=== PATIENT | male | born 1975 | race African-American/Black ===

== ENCOUNTER 2017-02-22 02:07 | Emergency (ER) | payer OTHER ==
[~2017-02-22] VITALS: Ht 167.6 cm; Wt 86.2 kg
[~2017-02-22 02:07] MED LIST: BACTRIM-DS1 EA ORAL; IBUPROFEN600 MG ORAL; KEFLEX500 MG ORAL; NKM; NORCO 5-325 TA1 EACH ORAL; TRAMADOL HCL50 MG ORAL; VALIUM5 MG ORAL
[2017-02-22 02:28] VITALS: BP 142/84
--- NOTE | 2017-02-22 02:44 | Emergency Room Report ---
History of Present Illness General Chief Complaint: Flu Like Symptoms Source: Patient Present Illness HPI 44-year-old male, current smoker, p/w cough for 2 days. Pt states cough is productive, with clear non bloody sputum. Denies fever chills sob or chest pain. +runny nose or myalgias. No sick contacts or recent travel. Allergies: Coded Allergies: No Known Allergies (Unverified , 07/11/13) Patient History Past Medical History: see triage record Past Surgical History: none Pertinent Family History: none Reviewed Nursing Documentation: PMH: Agreed, PSxH: Agreed Nursing Documentation-PMH Past Medical History: No Stated History Review of Systems All Other Systems: negative except mentioned in HPI Physical Exam Vital Signs Date Time Temp Pulse Resp B/P (MAP) Pulse Ox O2 Delivery O2 Flow Rate FiO2 02/22/17 02:15 98.4 110 16 142/84 96 Room Air Sp02 EP Interpretation: reviewed, normal General Appearance: normal inspection, well appearing, no apparent distress, alert, GCS 15, non-toxic Head: normocephalic, atraumatic Eyes: bilateral eye normal inspection, bilateral eye PERRL, bilateral eye EOMI ENT: normal ENT inspection, normal pharynx, normal voice, moist mucus membranes Neck: normal inspection, full range of motion, supple Respiratory: normal inspection, lungs clear, normal breath sounds, no respiratory distress, no retraction, no wheezing, speaking full sentences, chest symmetrical Cardiovascular #1: normal inspection, regular rate, rhythm, normal capillary refill Cardiovascular #2: 2+ radial (R), 2+ radial (L) Gastrointestinal: normal inspection, non tender, soft, non-distended, no guarding Genitourinary: no CVA tenderness Musculoskeletal: normal inspection, back normal, normal range of motion, non- tender Neurologic: normal inspection, alert, oriented x3, responsive, motor strength/ tone normal, sensory intact, normal gait, speech normal Psychiatric: normal inspection, judgement/insight normal, memory normal Skin: normal inspection, normal color, no rash, warm/dry, well hydrated, normal turgor Medical Decision Making Diagnostic Impression: Primary Impression: Viral URI with cough ER Course 41-year-old male with cough DDX: Viral URI vs. pneumonia Plan: CXR, antibiotics ER course: Patient remains nontoxic, not in resp distress. CXR obtained - no acute infiltrate Disposition: Patient is to be discharged home Strict precautions discussed with patient on when to return to the emergency room including hemoptysis, high fevers, chills, SOB, chest pain which may indicate severe illness. Patient is to follow up with their primary care doctor within 5 days. Patient agrees with plan. Please note that this Emergency Department Report was dictated using [email or web address] technology software, occasionally this can lead to erroneous entry secondary to interpretation by the dictation equipment Chest X-ray CXR: Ordered: Yes 1 view Indication: Cough EP interpretation: Yes Interpretation: No consolidation, no effusion, no PTX, no acute cardiopulmonary disease Impression: No acute disease Electronically signed by Rosa Elena Solo MD Last Vital Signs Date Time Temp Pulse Resp B/P (MAP) Pulse Ox O2 Delivery O2 Flow Rate FiO2 02/22/17 02:15 98.4 110 16 142/84 96 Room Air Disposition: HOME, SELF-CARE Condition: Improved Patient Instructions: Upper Respiratory Infection, Adult, [id number] Rosa Elena Solo M.D. Feb 22, 2017 02:44
[2017-02-22] MEDS ORDERED: TESSALON PERLE100 MG ORAL (02:57)
[2017-02-22 03:04] VITALS: BP 142/84
--- NOTE | 2017-02-22 10:54 | Diagnostic Imaging Report ---
Indication: Cough Technique: One view of the chest Comparison: 01/26/2014 Findings: Lungs and pleural spaces are clear. Heart size is normal. No significant change Impression: No acute process
== END 2017-02-22 03:15 | disposition home or self-care (01) ==
LOC: EMR 03:13
DX: J06.9 Acute upper respiratory infection, unspecified (principal); B34.9 Viral infection, unspecified
CPT/HCPCS: 71010; 99283

== ENCOUNTER 2018-09-20 13:40 | Emergency (ER) | payer OTHER ==
[~2018-09-20] VITALS: Ht 167.6 cm; Wt 79.4 kg
[~2018-09-20 13:40] MED LIST changes: +TESSALON PERLE100 MG ORAL
--- NOTE | 2018-09-20 13:50 | NUR ---
ED Nurse Note: Patient walked into ED c/o abdominal pain, patient reports nausea and vomiting. patient denies diarrhea. patient is alert awake x4 ambulatory. breathing unlabored and even.
[2018-09-20] MEDS ORDERED: Fleet's Enema 133ml RECTAL ONE ×2 (14:15→15:30)
--- NOTE | 2018-09-20 14:23 | NUR ---
ED Nurse Note: Per Dr. Bello, hold all the orders, do the enema first.
--- NOTE | 2018-09-20 14:31 | NUR ---
ED Nurse Note: enema given as ordred
--- NOTE | 2018-09-20 14:44 | Emergency Room Report ---
History of Present Illness General Chief Complaint: Abdominal Pain Source: Patient Present Illness HPI Patient states that he has a history of constipation. He states that he has not had a bowel movement in the past 2 days. He states he had tried to go today and only had tiny pellets. He states that he has had a poor diet with a lot of cheese. He denies nausea or vomiting. He denies fever or chills. He states his abdomen hurts and he feels nauseated. He states that he believes he just needs to have a bowel movement. Is requesting a stool softener. He states that his urine has been darker today. He denies chest pain or shortness of breath. He has no other complaints. Allergies: Coded Allergies: No Known Allergies (Unverified , 07/11/13) Patient History Past Medical History: none, see triage record Past Surgical History: none Social History: Reports: alcohol use, drug use; Denies: smoking Reviewed Nursing Documentation: PMH: Agreed; PSxH: Agreed Nursing Documentation-PMH Past Medical History: No Stated History Review of Systems All Other Systems: negative except mentioned in HPI Physical Exam Vital Signs Date Time Temp Pulse Resp B/P (MAP) Pulse Ox O2 Delivery O2 Flow Rate FiO2 09/20/18 13:45 98.6 109 19 138/99 (112) 96 Room Air Sp02 EP Interpretation: reviewed, normal General Appearance: no apparent distress, alert, GCS 15, non-toxic Head: normocephalic, atraumatic Eyes: bilateral eye normal inspection, bilateral eye PERRL ENT: hearing grossly normal, normal pharynx, no angioedema, normal voice Neck: full range of motion, supple/symm/no masses Respiratory: chest non-tender, lungs clear, normal breath sounds, no respiratory distress, no retraction, no accessory muscle use, speaking full sentences Cardiovascular #1: regular rate, rhythm, no edema Gastrointestinal: normal bowel sounds, soft, no guarding, no rebound, distended , tenderness - Diffusely TTP Rectal: deferred Musculoskeletal: back normal, gait/station normal, normal range of motion, non- tender Neurologic: alert, oriented x3, responsive, motor strength/tone normal, sensory intact, speech normal Psychiatric: judgement/insight normal, memory normal, mood/affect normal, no suicidal/homicidal ideation Skin: no rash, normal color, normal inspection Medical Decision Making Diagnostic Impression: Primary Impression: Appendicitis ER Course This patient who presented with constipation. On arrival, I had ordered lab work-up and a CT of the abdomen and pelvis to further assess the patient's abdomen. The patient's abdomen was quite tender on examination. Initially, the patient had declined stating that he wanted to have a bowel movement first. He was given a Fleet enema. He had a very small bowel movement. He had significant resolution of his pain, however, he was concerned as he still had ongoing full feeling. At that time, he decided to undergo the lab tests in the CT of the abdomen and pelvis. This delayed the evaluation of this patient. Patient was found to have early appendicitis. This fits with the patient's exam. He is admitted for surgical appendectomy. The patient's insurance company requested his transfer. He is stable for transfer. Laboratory Tests Test 09/20/18 16:55 White Blood Count 10.3 K/UL (4.8-10.8) Red Blood Count 5.64 M/UL (4.70-6.10) Hemoglobin 17.5 G/DL (14.2-18.0) Hematocrit 52.5 % (42.0-52.0) H Mean Corpuscular Volume 93 FL (80-99) Mean Corpuscular Hemoglobin 31.0 PG (27.0-31.0) Mean Corpuscular Hemoglobin Concent 33.4 G/DL (32.0-36.0) Red Cell Distribution Width 11.4 % (11.6-14.8) L Platelet Count 259 K/UL (150-450) Mean Platelet Volume 7.4 FL (6.5-10.1) Neutrophils (%) (Auto) 68.1 % (45.0-75.0) Lymphocytes (%) (Auto) 21.8 % (20.0-45.0) Monocytes (%) (Auto) 7.6 % (1.0-10.0) Eosinophils (%) (Auto) 0.6 % (0.0-3.0) Basophils (%) (Auto) 2.0 % (0.0-2.0) Sodium Level 135 MMOL/L (136-145) L Potassium Level 3.6 MMOL/L (3.5-5.1) Chloride Level 99 MMOL/L (98-107) Carbon Dioxide Level 30 MMOL/L (21-32) Anion Gap 7 mmol/L (5-15) Blood Urea Nitrogen 21 mg/dL (7-18) H Creatinine 1.2 MG/DL (0.55-1.30) Estimate Glomerular Filtration Rate > 60 mL/min (>60) Glucose Level 143 MG/DL (74-106) H Calcium Level 9.7 MG/DL (8.5-10.1) Total Bilirubin 0.7 MG/DL (0.2-1.0) Aspartate Amino Transferase (AST) 20 U/L (15-37) Alanine Aminotransferase (ALT) 24 U/L (12-78) Alkaline Phosphatase 77 U/L (46-116) Troponin I 0.023 ng/mL (0.000-0.056) Total Protein 8.6 G/DL (6.4-8.2) H Albumin 3.7 G/DL (3.4-5.0) Globulin 4.9 g/dL Albumin/Globulin Ratio 0.8 (1.0-2.7) L Lipase 182 U/L (73-393) EKG Diagnostic Results Rate: normal Rhythm: NSR ST Segments: no acute changes Other Impression prolonged Qt Rhythm Strip Diag. Results EP Interpretation: yes Rate: 90's Rhythm: NSR, no PVC's, no ectopy CT/MRI/US Diagnostic Results CT/MRI/US Diagnostic Results : Imaging Test Ordered: CT abd/pelvis Impression Inflammatory findings of the appendix c/w early appendicitis. Last Vital Signs Date Time Temp Pulse Resp B/P (MAP) Pulse Ox O2 Delivery O2 Flow Rate FiO2 09/20/18 14:24 98 19 Room Air 09/20/18 13:45 98.6 138/99 (112) 96 Disposition: HOME, SELF-CARE Condition: Serious Rochelle Bello DO Sep 20, 2018 14:44
[2018-09-20 14:45] VITALS: BP 136/98
--- NOTE | 2018-09-20 15:39 | NUR ---
ED Nurse Note: first enema given successfully, patient was able to pass out some stool. second enema was given as ordered, unsuccessful, patient c/o discomfort and pain and insisted to stop. was not able to push enema solution through. notified Dr. Bello.
[2018-09-20] MEDS ORDERED: Isovue-300 100ml vial INJ PRN (16:00)
--- NOTE | 2018-09-20 16:02 | NUR ---
ED Nurse Note: patient is sitting on the commode
[2018-09-20 17:16] LABS: EOSINOPHILS % (AUTO) 0.6 % (0.0-3.0); HEMATOCRIT 52.5 % (42.0-52.0); HEMOGLOBIN 17.5 G/DL (14.2-18.0); LYMPHOCYTES % (AUTO) 21.8 % (20.0-45.0); MEAN CORPUSCULAR VOLUME 93 FL (80-99); MONOCYTES % (AUTO) 7.6 % (1.0-10.0); NEUTROPHILS % (AUTO) 68.1 % (45.0-75.0); PLATELET COUNT 259 K/UL (150-450); RED BLOOD COUNT 5.64 M/UL (4.70-6.10); RED CELL DISTRIBUTION WIDTH 11.4 % (11.6-14.8); WHITE BLOOD COUNT 10.3 K/UL (4.8-10.8)
[2018-09-20 17:24] LABS: ANION GAP 7 mmol/L (5-15); BLOOD UREA NITROGEN 21 mg/dL (7-18); CALCIUM 9.7 MG/DL (8.5-10.1); CARBON DIOXIDE 30 MMOL/L (21-32); CHLORIDE 99 MMOL/L (98-107); CREATININE 1.2 MG/DL (0.55-1.30); POTASSIUM 3.6 MMOL/L (3.5-5.1); SODIUM 135 MMOL/L (136-145)
[2018-09-20 17:28] LABS: ALANINE AMINOTRANSFERASE 24 U/L (12-78); ALBUMIN 3.7 G/DL (3.4-5.0); ALBUMIN/GLOBULIN RATIO 0.8 (1.0-2.7); ALKALINE PHOSPHATASE 77 U/L (46-116); ASPARTATE AMINO TRANSFERASE 20 U/L (15-37); BILIRUBIN,TOTAL 0.7 MG/DL (0.2-1.0)
--- NOTE | 2018-09-20 17:29 | NUR ---
ED Nurse Note: patient reported that he cannot give urine sample right now, but will give a little later.
--- NOTE | 2018-09-20 18:29 | NUR ---
ED Nurse Note: Patient educated not to eat anything by mouth from now on, including drinking water.
--- NOTE | 2018-09-20 18:30 | NUR ---
ED Nurse Note: patient verbalized understanding
--- NOTE | 2018-09-20 19:10 | NUR ---
HAND-OFF: Report given to Justin MCLEOD.
[2018-09-20 19:11] LABS: APPEARANCE,URINE CLEAR; BILIRUBIN, URINE NEGATIVE (NEGATIVE); COLOR,URINE PALE YELLOW; GLUCOSE, URINE (UA) NEGATIVE (NEGATIVE); KETONES,URINE NEGATIVE (NEGATIVE); LEUKOCYTE ESTERASE ,URINE NEGATIVE (NEGATIVE); NITRITE,URINE NEGATIVE (NEGATIVE); PH,URINE 6 (4.5-8.0); PROTEIN,URINE 2+ (NEGATIVE); UROBILINOGEN,URINE NORMAL MG/DL (0.0-1.0)
[2018-09-20 20:14] VITALS: BP 137/98
--- NOTE | 2018-09-20 21:00 | NUR ---
ED Nurse Note: Gave report to SHANI Ng
[2018-09-20 21:30] VITALS: BP 132/88
--- NOTE | 2018-09-21 10:15 | Diagnostic Imaging Report ---
Indication: Abdominal pain Technique: Continuous helical transaxial imaging of the abdomen and pelvis was obtained from the lung bases to the pubic symphysis during intravenous contrast administration. Coronal 2-D reformats were also obtained. Study obtained in a Siemens sensation [address] Automatic Exposure Control was utilized. Total Dose length Product (DLP): 700.[address] Dose Index Volume (CTDIvol): 12.1 mGy Comparison: None Findings: The lung bases are clear. There are multiple bilateral renal cysts. The liver and spleen, pancreas, gallbladder, adrenal glands appear unremarkable. Bowel gas pattern is nonobstructive. The base of the appendix is dilated measuring about 1.3 cm. The mid to distal portion of the appendix and the tip of the appendix appear normal. There is no definite inflammation identified surrounding the appendix. Correlate clinically for acute appendicitis. There is no abscess or evidence of free fluid. There is thickening of the wall the urinary bladder. Mild prostate calcification present. Mild calcification of aorta demonstrated. IMPRESSION: Prominent base of the appendix. Early appendicitis not excluded. Correlate clinically. Multiple bilateral renal cysts. Other incidental findings as above [facility] has communicated the preliminary results to the Emergency Department. Their findings are largely concordant with this report. The CT scanner at [facility] is accredited by the [employer] and the scans are performed using dose optimization techniques as appropriate to a performed exam including Automatic Exposure control.
--- NOTE | 2018-09-21 15:55 | Cardiology Report ---
APPROVED REPORT EKG Measurement Heart [id number] ID [id number] Normal sinus rhythm Biatrial enlargement Prolonged QT Abnormal ECG
== END 2018-09-20 20:55 | disposition home or self-care (01) ==
LOC: EMR 18:50
DX: K37 Unspecified appendicitis (principal); N28.1 Cyst of kidney, acquired
CPT/HCPCS: 36415; 74177; 80053; 80307; 81003; 83690; 84484; 85025; 93005; 96361; 96374; 96375; 99284; J2405; Q9967; S0028

== ENCOUNTER 2019-11-12 22:33 | Emergency (ER) | payer OTHER ==
[~2019-11-12] VITALS: Ht 167.6 cm; Wt 83.9 kg
[2019-11-12 22:43] VITALS: BP 152/93
--- NOTE | 2019-11-12 22:59 | Emergency Room Report ---
History of Present Illness General Chief Complaint: Back Pain-No Injury Source: Patient Present Illness HPI 44-year-old male here with several weeks of left lower back pain. Patient says that the pain is dull in nature, located in the left lower back, does not otherwise radiate. No bloody urine or bloody stool. No injuries. Denies IV drug use. No midline back pain. No fevers or chills. No focal numbness or weakness. No saddle anesthesia or difficulty urinating or defecating. No urinary fecal retention or incontinence. Has not taken any medications for the pain. Allergies: Coded Allergies: No Known Allergies (Unverified , 07/11/13) COVID-19 Screening Contact w/high risk pt: No Experienced COVID-19 symptoms?: No COVID-19 Testing performed BILLING COLLECTIONS SPECIALIST: No Nursing Documentation-[facility] Past Medical History: No Stated History Review of Systems All Other Systems: negative except mentioned in HPI Physical Exam Vital Signs Date Time Temp Pulse Resp B/P (MAP) Pulse Ox O2 Delivery O2 Flow Rate FiO2 11/12/19 22:35 98.4 110 19 152/93 (112) 94 11/12/19 22:43 Room Air Sp02 EP Interpretation: reviewed, normal General Appearance: no apparent distress, alert, non-toxic Head: normocephalic, atraumatic Eyes: bilateral eye normal inspection, bilateral eye PERRL ENT: hearing grossly normal, normal pharynx, no angioedema, normal voice Neck: full range of motion, supple/symm/no masses Respiratory: chest non-tender, lungs clear, normal breath sounds, speaking full sentences Cardiovascular #1: regular rate, rhythm, no edema Cardiovascular #2: 2+ carotid (R), 2+ carotid (L), 2+ radial (R), 2+ radial (L) , 2+ dorsalis pedis (R), 2+ dorsalis pedis (L) Gastrointestinal: normal bowel sounds, non tender, soft, non-distended, no guarding, no rebound Rectal: deferred Genitourinary: normal inspection, no CVA tenderness Musculoskeletal: back normal, normal range of motion, calf tenderness, gait/ station normal, tender - Left lumbar paraspinal muscle tenderness on palpation. No midline spinal tenderness. No step-offs or deformities. No focal numbness or weakness. Neurologic: alert, motor strength/tone normal, oriented x3, sensory intact, responsive, speech normal Psychiatric: judgement/insight normal, memory normal, mood/affect normal, no suicidal/homicidal ideation Reflexes: 3+ bicep (R), 3+ bicep (L), 3+ tricep (R), 3+ tricep (L), 3+ knee (R) , 3+ knee (L) Lymphatic: no adenopathy Medical Decision Making Diagnostic Impression: Primary Impression: Muscle spasm Additional Impression: Muscle spasm of back ER Course 44-year-old male here with nontraumatic left lower back pain for several weeks. Patient was hemodynamically stable in the emergency department and had a normal neurologic and physical examination aside from some mild tenderness with palpation of the left paraspinal lumbar muscles. He was given Lidoderm patch, Toradol, Tylenol, Valium with good resolution of his pain. Denies any other symptoms including focal weakness, anesthesia, recent unintentional weight loss, night sweats, history of IV drug use, recent steroid usage, history of osteoporosis, urinary or bowel incontinence or retention, or history of malignancy. He was given prescription for pain medications and information to follow-up with her primary care physician. Discharged in stable condition. Last Vital Signs Date Time Temp Pulse Resp B/P (MAP) Pulse Ox O2 Delivery O2 Flow Rate FiO2 11/12/19 22:43 98.4 76 19 152/93 96 Room Air Scripts Lidocaine Patch* (Lidoderm Patch*) 1 Each Adh..patch 1 PATCH TOPIC DAILY, #7 PATCH 0 Refills Patch(es) may remain in place for up to 12 hours in any 24-hour period. Prov: Simeon Garcia M.D. 11/12/19 Ibuprofen* (MOTRIN*) 600 Mg Tablet 600 MG ORAL Q6H PRN for FOR PAIN, #20 TAB 0 Refills Prov: Simeon Garcia M.D. 11/12/19 Referrals: [facility],REFERRING (PCP) Simeon Garcia M.D. Nov 12, 2019 22:59
[2019-11-12] MEDS ORDERED: Acetaminophen 500mg (ES) tab ORAL ONE (23:00)
[2019-11-12] MEDS ORDERED: Ketorolac 60mg Inj IM ONE (23:00)
[2019-11-12] MEDS ORDERED: IBUPROFEN600 M1 ORAL (23:22)
[2019-11-12] MEDS ORDERED: LIDODERM700 M1 TOPIC (23:22)
[2019-11-12 23:37] VITALS: BP 152/93
== END 2019-11-12 23:37 | disposition home or self-care (01) ==
LOC: EMR 22:55
DX: M62.830 Muscle spasm of back (principal)
CPT/HCPCS: 96372; Z7502; 99283

== ENCOUNTER 2020-05-12 05:22 | Emergency (ER) | payer OTHER ==
[~2020-05-12] VITALS: Ht 170.2 cm; Wt 86.2 kg
[~2020-05-12 05:22] MED LIST changes: +IBUPROFEN600 M1 ORAL; +LIDODERM700 M1 TOPIC
--- NOTE | 2020-05-12 05:51 | Emergency Room Report ---
History of Present Illness General Chief Complaint: Dyspnea/Respdistress Source: Patient (Rohith Nguyen MD) Present Illness HPI Is a 44-year-old male with history of high blood pressure but not on medication. He is also a smoker. He presents with chief complaint of shortness of breath. Onset for last 2 weeks. Worse with exertion. Better with rest. Denies any chest pain. He has a chronic cough but nonproductive nature other than slight phlegm. Denies any fever chills but denies any weight loss. He denies any nausea vomiting or diarrhea. (Rohith Nguyen MD) Allergies: Coded Allergies: No Known Allergies (Unverified , 07/11/13) COVID-19 Screening Contact w/high risk pt: No Experienced COVID-19 symptoms?: No COVID-19 Testing performed CHIEF RECORDIST: No (Rohith Nguyen MD) Patient History Past Medical History: see triage record, old chart reviewed, HTN Past Surgical History: appy Pertinent Family History: none Social History: Reports: smoking Immunizations: other Reviewed Nursing Documentation: PMH: Agreed; PSxH: Agreed (Rohith Nguyen MD) Nursing Documentation-PMH Past Medical History: No Stated History (Rohith Nguyen MD) Review of Systems Eye: Denies: eye pain, blurred vision ENT: Denies: ear pain, nose congestion, throat swelling Respiratory: Reports: cough, shortness of breath, PELAEZ Cardiovascular: Denies: chest pain, palpitations Gastrointestinal: Denies: abdominal pain, diarrhea, nausea, vomiting Musculoskeletal: Denies: back pain, joint pain Skin: Denies: rash Neurological: Denies: headache, numbness Endocrine: Denies: increased thirst, increased urine Hematologic/Lymphatic: Denies: easy bruising All Other Systems: negative except mentioned in HPI (Rohith Nguyen MD) Physical Exam Vital Signs Date Time Temp Pulse Resp B/P (MAP) Pulse Ox O2 Delivery O2 Flow Rate FiO2 05/12/20 05:28 97.2 94 20 149/98 (115) 94 Room Air Vitals with high blood pressure Sp02 EP Interpretation: reviewed, normal General Appearance: well appearing, no apparent distress, alert Head: normocephalic, atraumatic Eyes: bilateral eye PERRL, bilateral eye EOMI ENT: hearing grossly normal, normal pharynx Neck: full range of motion, supple, no meningismus Respiratory: chest non-tender, lungs clear, normal breath sounds, respiratory distress - Mild, decreased breath sounds, accessory muscle use Cardiovascular #1: regular rate, rhythm, no murmur, tachycardia Gastrointestinal: normal bowel sounds, non tender, no mass, no organomegaly, no bruit, non-distended Musculoskeletal: back normal, normal range of motion, gait/station normal Psychiatric: mood/affect normal (Rohith Nguyen MD) Medical Decision Making Diagnostic Impression: Primary Impression: New onset type 2 diabetes mellitus Additional Impressions: New onset of congestive heart failure Substance abuse ER Course Patient presents with dyspnea on exertion. Differential includes ACS, PE, dissection Tamiflu. Work-up pending. I will sign this patient out to the oncoming doctor. (Rohith Nguyen MD) ER Course Patient was endorsed to me by .See 's note for full HPI. Patient presents for increased shortness of breath. Differential diagnosis include was not limited to coronavirus infection, pneumonia, CHF, renal failure among others. Because of complexity of patient's case laboratory tests and imaging studies were ordered. Patient's chest x-ray showed some cardiomegaly compared to previous x-rays. There were no effusions noted. Patient was started on IV Lasix as well as nitroglycerin. Patient was noted to have bilateral dependent edema. He was given aspirin. Patient's laboratory testing also shows some evidence of hyperglycemia. Does not have any prior history of diabetes. Urine drug screen was positive for multiple drugs. Patient denies any recent cough syrup use. Was unaware of PCP use but does admit to amphetamine use. Patient was discussed with Dr. Mccall who accepted the patient to [facility]. Labs Test 05/12/20 06:04 White Blood Count 7.2 K/UL (4.8-10.8) Red Blood Count 5.73 M/UL (4.70-6.10) Hemoglobin 17.6 G/DL (14.2-18.0) Hematocrit 54.0 % (42.0-52.0) Mean Corpuscular Volume 94 FL (80-99) Mean Corpuscular Hemoglobin 30.7 PG (27.0-31.0) Mean Corpuscular Hemoglobin Concent 32.6 G/DL (32.0-36.0) Red Cell Distribution Width 13.5 % (11.6-14.8) Platelet Count 271 K/UL (150-450) Mean Platelet Volume 9.3 FL (6.5-10.1) Neutrophils (%) (Auto) 48.6 % (45.0-75.0) Lymphocytes (%) (Auto) 39.6 % (20.0-45.0) Monocytes (%) (Auto) 6.2 % (1.0-10.0) Eosinophils (%) (Auto) 3.7 % (0.0-3.0) Basophils (%) (Auto) 1.9 % (0.0-2.0) D-Dimer 1.07 mg/L FEU (0.00-0.49) Urine Color Yellow Urine Appearance Clear Urine pH 5 (4.5-8.0) Urine Specific [place] 1.025 (1.005-1.035) Urine Protein 2+ (NEGATIVE) Urine Glucose (UA) Negative (NEGATIVE) Urine Ketones Negative (NEGATIVE) Urine Blood 1+ (NEGATIVE) Urine Nitrite Negative (NEGATIVE) Urine Bilirubin Negative (NEGATIVE) Urine Urobilinogen Normal MG/DL (0.0-1.0) Urine Leukocyte Esterase Negative (NEGATIVE) Urine RBC 0-2 /HPF (0 - 0) Urine WBC 0 /HPF (0 - 0) Urine Squamous Epithelial Cells None /LPF (NONE/OCC) Urine Bacteria None /HPF (NONE) Sodium Level 140 MMOL/L (136-145) Potassium Level 3.9 MMOL/L (3.5-5.1) Chloride Level 104 MMOL/L (98-107) Carbon Dioxide Level 27 MMOL/L (21-32) Anion Gap 9 mmol/L (5-15) Blood Urea Nitrogen 25 mg/dL (7-18) Creatinine 1.4 MG/DL (0.55-1.30) Estimat Glomerular Filtration Rate > 60 mL/min (>60) Glucose Level 202 MG/DL (74-106) Calcium Level 10.0 MG/DL (8.5-10.1) Total Bilirubin 0.5 MG/DL (0.2-1.0) Aspartate Amino Transf (AST/SGOT) 44 U/L (15-37) Alanine Aminotransferase (ALT/SGPT) 74 U/L (12-78) Alkaline Phosphatase 97 U/L (46-116) Troponin I 0.052 ng/mL (0.000-0.056) Pro-B-Type Natriuretic Peptide 2207 pg/mL (0-125) Total Protein 7.4 G/DL (6.4-8.2) Albumin 3.7 G/DL (3.4-5.0) Globulin 3.7 g/dL Albumin/Globulin Ratio 1.0 (1.0-2.7) Urine Opiates Screen Negative (NEGATIVE) Urine Barbiturates Screen Negative (NEGATIVE) Phencyclidine (PCP) Screen Positive (NEGATIVE) Urine Amphetamines Screen Positive (NEGATIVE) Urine Benzodiazepines Screen Negative (NEGATIVE) Urine Cocaine Screen Negative (NEGATIVE) Urine Marijuana (THC) Screen Positive (NEGATIVE) (Guille Parada MD) EKG Diagnostic Results Rate: tachycardiac Rhythm: NSR ST Segments: other - NSST changes (Rohith Nguyen MD) Rhythm Strip Diag. Results EP Interpretation: yes Rate: 110 Rhythm: NSR, no PVC's (Rohith Nguyen MD) Chest X-Ray Diagnostic Results Chest X-Ray Diagnostic Results : Chest X-Ray Ordered: Yes # of Views/Limited/Complete: 1 View Indication: Shortness of Breath EP Interpretation: Yes Interpretation: no consolidation, no effusion, no pneumothorax, other - CM Impression: Other - Cardiomegaly Electronically Signed by: Rohith Nguyen MD (Rohith Nguyen MD) Last Vital Signs Date Time Temp Pulse Resp B/P (MAP) Pulse Ox O2 Delivery O2 Flow Rate FiO2 05/12/20 05:28 97.2 94 20 149/98 (115) 94 Room Air Status: improved (Rohith Nguyen MD) Status: unchanged (Guille Parada MD) Disposition: SHORT-TERM HOSP Condition: Stable Referrals: [facility],REFERRING (PCP) Rohith Nguyen MD May 12, 2020 05:51 Guille Parada MD May 12, 2020 07:27
[2020-05-12] MEDS ORDERED: Albuterol ud Inhalation HHN ONE (06:00)
[2020-05-12 06:14] VITALS: BP 149/98
[2020-05-12 06:18] LABS: APPEARANCE,URINE CLEAR; BILIRUBIN, URINE NEGATIVE (NEGATIVE); GLUCOSE, URINE (UA) NEGATIVE (NEGATIVE); KETONES,URINE NEGATIVE (NEGATIVE); LEUKOCYTE ESTERASE ,URINE NEGATIVE (NEGATIVE); NITRITE,URINE NEGATIVE (NEGATIVE); PH,URINE 5 (4.5-8.0); PROTEIN,URINE 2+ (NEGATIVE); UROBILINOGEN,URINE NORMAL MG/DL (0.0-1.0)
--- NOTE | 2020-05-12 06:19 | NUR ---
ED Nurse Note: Pt came in with c/o sob at rest x1 week, hx of appendicitis, AOx4, ambulatory, tachycardic and tachypnic pt has no complaints, blood, urine, and covid specimen sent to lab
[2020-05-12 06:20] LABS: BASOPHILS % (AUTO) 1.9 % (0.0-2.0); EOSINOPHILS % (AUTO) 3.7 % (0.0-3.0); HEMOGLOBIN 17.6 G/DL (14.2-18.0); LYMPHOCYTES % (AUTO) 39.6 % (20.0-45.0); MEAN CORPUSCULAR VOLUME 94 FL (80-99); MONOCYTES % (AUTO) 6.2 % (1.0-10.0); NEUTROPHILS % (AUTO) 48.6 % (45.0-75.0); PLATELET COUNT 271 K/UL (150-450); RED BLOOD COUNT 5.73 M/UL (4.70-6.10); RED CELL DISTRIBUTION WIDTH 13.5 % (11.6-14.8); WHITE BLOOD COUNT 7.2 K/UL (4.8-10.8)
[2020-05-12 06:29] LABS: ANION GAP 9 mmol/L (5-15); BLOOD UREA NITROGEN 25 mg/dL (7-18); CARBON DIOXIDE 27 MMOL/L (21-32); CHLORIDE 104 MMOL/L (98-107); CREATININE 1.4 MG/DL (0.55-1.30); POTASSIUM 3.9 MMOL/L (3.5-5.1); SODIUM 140 MMOL/L (136-145)
[2020-05-12 06:30] LABS: COLOR,URINE YELLOW
[2020-05-12 06:41] LABS: ALANINE AMINOTRANSFERASE 74 U/L (12-78); ALBUMIN 3.7 G/DL (3.4-5.0); ALKALINE PHOSPHATASE 97 U/L (46-116); ASPARTATE AMINO TRANSFERASE 44 U/L (15-37); BILIRUBIN,TOTAL 0.5 MG/DL (0.2-1.0)
[2020-05-12] MEDS ORDERED: Nitroglycerin Subl 0.4mg tab SL PRN (07:00)
[2020-05-12 07:11] VITALS: BP 137/96
--- NOTE | 2020-05-12 08:44 | NUR ---
Patient to be transferred to [facility]
--- NOTE | 2020-05-12 09:11 | NUR ---
Report called in to Savi at [facility]. Will call her when EMS gets to facility for pick-up and also for accu-check #.
--- NOTE | 2020-05-12 10:28 | NUR ---
Patient placed on NC at 3L per MD due to desaturation on movement.
--- NOTE | 2020-05-12 15:44 | Cardiology Report ---
APPROVED REPORT EKG Measurement Heart [id number] <Conclusion> Sinus tachycardia Left atrial enlargement Left axis deviation Septal infarct, age undetermined Abnormal ECG
--- NOTE | 2020-05-12 16:17 | Diagnostic Imaging Report ---
Indication: Shortness of breath Technique: One view of the chest Comparison: 02/22/2017 Findings: Less optimal inspiration currently. The heart is enlarged. Lungs and pleural space are clear. Impression: Cardiomegaly. No definite acute process
== END 2020-05-12 11:45 | disposition short-term general hospital (02) ==
LOC: EMR 05:32
DX: I11.0 Hypertensive heart disease with heart failure (principal); I50.9 Heart failure, unspecified; F19.10 Other psychoactive substance abuse, uncomplicated; F17.200 Nicotine dependence, unspecified, uncomplicated; E11.65 Type 2 diabetes mellitus with hyperglycemia; R00.0 Tachycardia, unspecified
CPT/HCPCS: 36415; 71045; 80053; 80307; 81003; 83880; 84484; 85025; 85379; 93005; 94640; 96374; J1940; Z7502; 99285